=== PATIENT | female | born 1965 | race Caucasian/White ===

== ENCOUNTER 2016-06-26 12:40 | Emergency (ER) | payer OTHER ==
--- NOTE | 2016-06-26 13:11 | EDPHY ---
H & P Time Seen by Provider: 06/26/16 12:52 HPI/ROS: Chief complaint. Left eye blurriness HPI. 51-year-old female with complaint of blurriness to left eye. She was reading this morning at a restaurant for breakfast and noticed that the menu seemed blurry your than normal. Opening and closing each eye individually she feels that the left eye is more blurry than usual and the right eye is normal. She has been reading quite a bit the last few days especially at work. She has had no floaters or flashes. No spots before her eyes. No pain in her RI. No upper respiratory symptoms. No trauma or foreign body sensation. The no redness or drainage. No history of eye problems. She did begin control pills 3 days ago. She has no other complaints of headache or fever focal weakness or paresthesias. ROS Constitutional. no fever/chills, no weakness Eyes. Blurry left eye ENT. no sore throat, no nasal drainage Cardiovascular. no chest pain Respiratory. no shortness of breath, no cough Abdominal. no abdominal pain, no nausea/vomiting, no diarrhea . no problems urinating MS. no calf pain/swelling, no neck/back pain, no joint pain Skin. no rash Lymph. no swollen glands Neuro. no headache, no dizziness, no difficulty walking or with speech Past Medical/Surgical History: Irregular menstrual. Otherwise healthy Social History: Divorce, nonsmoker no alcohol Smoking Status: Never smoked Physical Exam: General Appearance: Alert well-developed female no distress vital signs are stable Eyes: Pupils equal and round no pallor or injection. There is no injection or redness or drainage. No swelling to the eye. Full range of motion without restriction of gaze. No visual field deficits on confrontational exam. ENT, Mouth: Mucous membranes are moist. Respiratory: There are no retractions, lungs are clear to auscultation. Cardiovascular: Regular rate and rhythm. Gastrointestinal: Abdomen is soft and nontender, no masses, bowel sounds normal. Neurological: Awake and alert, sensory and motor exams grossly normal. Skin: Warm and dry, no rashes. Musculoskeletal: Neck is supple nontender. Extremities symmetrical, full range of motion. Psychiatric: Patient is oriented X 3, there is no agitation. Constitutional: Initial Vital Signs Temperature (C) 36.4 C 06/26/16 12:46 Heart Rate 81 06/26/16 12:46 Respiratory Rate 16 06/26/16 12:46 Blood Pressure 116/68 06/26/16 12:46 O2 Sat (%) 98 06/26/16 12:46 O2 Delivery Mode Room Air Allergies/Adverse Reactions: No Known Allergies Allergy (Unverified 06/26/16 12:44) Home Medications: Medication Instructions Recorded [place] 24 Fe Tablet 06/26/16 Medical Decision Making Procedures: Visual acuity right eye is 20/50, left eye which is the involved eye is 20/40. Both eyes together are 20/25 Slit-lamp exam using Alcaine and floor seen is entirely normal. Anterior chamber appears normal. No evidence for foreign body or abrasion. No ulceration. After the exam the floor seen is irrigated from the eye ED Course/Re-evaluation: I consulted and discussed case with Dr. Carlitos Case, ophthalmology who recommends no further imaging or testing at this point in time. He will see the patient in the office tomorrow. I discussed eye exam findings, treatment plan, criteria for return and importance of follow-up and further evaluation with the patient. She expresses understanding and agreement Differential Diagnosis: I considered eye strain, conjunctivitis, corneal abrasion or ulcer, retinal detachment, vitreous hemorrhage - Data Points Medications Given: Discontinued Medications Fluorescein Sodium (Marji-I-Yrlwj) 1 mg OP EDNOW ONE Stop: 06/26/16 13:21 Last Admin: 06/26/16 13:20 Dose: 1 mg Proparacaine HCl (Alcaine 0.5%) 1 drops OP EDNOW ONE Stop: 06/26/16 13:21 Last Admin: 06/26/16 13:20 Dose: 1 drop Departure - Departure Disposition: Home, Routine, Self-Care Clinical Impression: Decreased vision left eye Condition: Good Instructions: Blurred Vision (ED) Additional Instructions: Try to decrease your reading and screen time breast today. I spoke to Dr. Carlitos Case for Ophthalmology who will be happy to see you in the office tomorrow especially if your vision is worse. Even if your vision improves tomorrow you should have an eye exam in the next few days. Return to the emergency department today for eye pain, black spots, progressive decrease in vision Referrals: Yarely Resendiz MD [Primary Care Provider] - As per Instructions Carlitos Case MD [Medical Doctor] - 1 day, if not improved
[2016-06-26] MEDS ORDERED: PROPARACAINE 0.5% 15 ML OPHT DROP ONE (13:19)
[2016-06-26] MEDS ORDERED: FLUORESCEIN SODIUM 1 MG STRIP OP ONE ×2 (13:19→13:20)
[2016-06-26] MEDS ORDERED: PROPARACAINE 0.5% 15 ML OPHT DROP OP ONE (13:20)
[2016-06-26 13:45] VITALS: BP 122/62; PULSE 63; RESP 18; TEMP 98.4; O2SAT 99
== END 2016-06-26 13:44 | disposition home or self-care (01) ==
DX: H54.52 Low vision, left eye, normal vision right eye (principal)

== ENCOUNTER → 2016-07-20 | Outpatient (CLI) | payer OTHER | LOC: BMCIMAGING 13:49 | PROVIDERS: ATTEND Internal Medicine | DX: J18.1 Lobar pneumonia, unspecified organism (principal) ==

== ENCOUNTER → 2018-09-08 | Outpatient (CLI) | payer OTHER | LOC: BMCIMAGING 14:09 | PROVIDERS: ATTEND Internal Medicine | DX: Z12.31 Encounter for screening mammogram for malignant neoplasm of breast (principal); Z80.3 Family history of malignant neoplasm of breast ==